=== PATIENT | male | born 1970 | race Caucasian/White ===

== ENCOUNTER → 2021-05-21 13:40 | Outpatient (BNVA) | payer OTHER, SELFPAY | PROVIDERS: Referring Provider Internal Medicine; Visit Provider Specialist | DX: S06.9X9S Unspecified intracranial injury with loss of consciousness of unspecified duration, sequela (principal); Y93.9 Activity, unspecified; R41.3 Other amnesia; F98.8 Other specified behavioral and emotional disorders with onset usually occurring in childhood and adolescence; F17.210 Nicotine dependence, cigarettes, uncomplicated | CPT/HCPCS: 96116; 99204 ==

== ENCOUNTER → 2021-05-23 10:10 | Outpatient (BNVA) | payer OTHER, SELFPAY | PROVIDERS: Visit Provider Specialist | DX: F98.8 Other specified behavioral and emotional disorders with onset usually occurring in childhood and adolescence (principal); S06.9X9S Unspecified intracranial injury with loss of consciousness of unspecified duration, sequela; Y93.9 Activity, unspecified; F17.210 Nicotine dependence, cigarettes, uncomplicated | CPT/HCPCS: 95816 ==

== ENCOUNTER → 2021-08-20 15:17 | Outpatient (BNVA) | payer OTHER, SELFPAY | PROVIDERS: Visit Provider Specialist | DX: F98.8 Other specified behavioral and emotional disorders with onset usually occurring in childhood and adolescence (principal); R41.1 Anterograde amnesia; S06.9X9S Unspecified intracranial injury with loss of consciousness of unspecified duration, sequela; Y93.9 Activity, unspecified | CPT/HCPCS: 99214 ==

== ENCOUNTER 2022-02-18 20:00 | Outpatient (CLI) | payer OTHER, SELFPAY | END 2022-02-18 20:01 | disposition home or self-care (01) | LOC: SLEEP 02-19 05:16 | PROVIDERS: PCP Internal Medicine; Visit Provider Specialist | DX: G47.33 Obstructive sleep apnea (adult) (pediatric) (principal) | CPT/HCPCS: 95810 ==